=== PATIENT | male | born 1980 | race American Indian/Alaskan Native ===

== ENCOUNTER 2021-02-26 02:53 | Emergency (ER) | payer SELFPAY ==
[2021-02-26 08:43] VITALS: BP 146/76
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
--- NOTE | 2021-02-26 09:53 | XRay Report ---
PELVIS HISTORY: COMPARISON: None. TECHNIQUE: AP radiograph(s) of the pelvis obtained. FINDINGS: Bones: No fracture or dislocation. Joint spaces: Maintained. Soft Tissues: No significant abnormality. Additional findings: Intramedullary philip present right femur IMPRESSION: 1. No acute abnormality. Signer Name: Jimmy Bateman MD Signed: 02/26/2021 9:48 AM Workstation Name: [email or web address]
== END 2021-02-26 10:30 | disposition home or self-care (01) ==
LOC: ED 02:53
DX: G89.29 Other chronic pain (principal); M25.551 Pain in right hip; R03.0 Elevated blood-pressure reading, without diagnosis of hypertension; Z79.899 Other long term (current) drug therapy
CPT/HCPCS: 99283

== ENCOUNTER 2021-12-08 22:58 | Emergency (ER) | payer OTHER ==
[2021-12-09 00:24] VITALS: BP 136/74
[2021-12-09] MEDS ORDERED: KETOROLAC 30 MG/1 ML INJ IM ONE (01:09)
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
== END 2021-12-09 03:23 | disposition home or self-care (01) ==
LOC: ED 22:58
DX: M54.50 Low back pain, unspecified (principal)
CPT/HCPCS: 96372; 99282; J1885

== ENCOUNTER 2022-04-25 13:54 | Emergency (ER) | payer OTHER ==
[2022-04-25 14:21] VITALS: BP 119/76
--- NOTE | 2022-04-25 14:35 | Emergency Department Report ---
ED Lower Extremity HPI - General Chief Complaint: Extremity Problem,Nontraumatic Stated Complaint: RIGHT KNEE PAIN AND HIP PAIN Time Seen by Provider: 04/25/22 14:34 Source: patient Mode of arrival: Ambulatory Limitations: No Limitations - History of Present Illness Initial Comments: 41 yo comes to er with acute on chronic sciatica pain of his right lower extremity. He has no new trauma. He has been seen here in the past. He states he does not have a primary care physician. He is on no medicines. MD Complaint: hip injury, knee injury -: Gradual Severity scale (0 -10): 4 Improves With: nothing Worsens With: movement - Related Data Previous Rx's Medication Instructions Recorded Last Taken Type Cyclobenzaprine [Flexeril] 10 mg PO TID PRN #15 tab 04/25/22 Unknown Rx Naproxen 500 mg PO BID PRN #30 tab 04/25/22 Unknown Rx Allergies Allergy/AdvReac Type Severity Reaction Status Date / Time No Known Allergies Allergy Unverified 02/26/21 04:38 ED Review of Systems ROS: Stated complaint: RIGHT KNEE PAIN AND HIP PAIN Other details as noted in HPI Comment: All other systems reviewed and negative ED Past Medical Hx - Past Medical History Previous Medical History?: Yes Additional medical history: Chronic hip and knee pain - Surgical History Past Surgical History?: Yes Additional Surgical History: RT femur - Family History Family history: no significant - Social History Smoking Status: Never Smoker Substance Use Type: None - Medications Home Medications: Home Medications Medication Instructions Recorded Confirmed Last Taken Type Cyclobenzaprine [Flexeril] 10 mg PO TID PRN #15 tab 04/25/22 Unknown Rx Naproxen 500 mg PO BID PRN #30 tab 04/25/22 Unknown Rx ED Physical Exam - General Limitations: No Limitations General appearance: alert, in no apparent distress - Head Head exam: Present: atraumatic, normocephalic - Eye Eye exam: Present: normal appearance - ENT ENT exam: Present: mucous membranes moist - Neck Neck exam: Present: normal inspection - Respiratory Respiratory exam: Present: normal lung sounds bilaterally. Absent: respiratory distress - Cardiovascular Cardiovascular Exam: Present: regular rate, normal rhythm. Absent: systolic murmur, diastolic murmur, rubs, gallop - GI/Abdominal GI/Abdominal exam: Present: soft, normal bowel sounds - Rectal Rectal exam: Present: deferred - Extremities Exam Extremities exam: Present: normal inspection - Back Exam Back exam: Present: normal inspection - Neurological Exam Neurological exam: Present: alert, oriented X3 - Psychiatric Psychiatric exam: Present: normal affect, normal mood - Skin Skin exam: Present: warm, dry, intact, normal color. Absent: rash ED Course Vital Signs 04/25/22 14:19 Temperature 98.9 F Pulse Rate 74 Respiratory 18 Rate Blood Pressure 119/76 O2 Sat by Pulse 100 Oximetry ED Lower Extremity MDM - Medical Decision Making Vital signs are normal. pos straight leg raise no new trauma. Patient has no fever or chills. He has no abdominal pain. He has no back pain. No CVA tenderness. He has no nausea vomiting or diarrhea. Pain does not wake patient up from sleep.He has no foot drop or signs and symptoms of cauda equina. Patient ambulatory neurologically intact. Vital Signs 04/25/22 14:19 Temperature 98.9 F Pulse Rate 74 Respiratory 18 Rate Blood Pressure 119/76 O2 Sat by Pulse 100 Oximetry dc home with dc plan of care including diet, meds, activity and follow up He verbalizes understanding of plan of care. - Differential Diagnosis a/c pain ; uti; sti; kidney stone Critical care attestation.: If time is entered above; I have spent that time in minutes in the direct care of this critically ill patient, excluding procedure time. ED Disposition Clinical Impression: Sciatica Qualifiers: Laterality: right Qualified Code(s): M54.31 - Sciatica, right side Disposition: 01 HOME / SELF CARE / HOMELESS Is pt being admited?: No Does the pt Need Aspirin: No Condition: Stable Instructions: Sciatica Additional Instructions: warm baths will help meds as ordered today follow up with pcp referral below he is here at the hospital Prescriptions: Cyclobenzaprine [Flexeril] 10 mg PO TID PRN #15 tab PRN Reason: Muscle Spasm Naproxen 500 mg PO BID PRN #30 tab PRN Reason: Pain Referrals: CAROLYN CHRISTY MD [Staff Physician] - 3-5 Days Forms: Work/School Release Form(ED) Time of Disposition: 14:38
== END 2022-04-25 15:38 | disposition home or self-care (01) ==
LOC: ED 13:54
DX: M54.31 Sciatica, right side (principal); G89.29 Other chronic pain; M25.551 Pain in right hip; M25.561 Pain in right knee; Z98.890 Other specified postprocedural states
CPT/HCPCS: 99282

== ENCOUNTER 2022-05-23 10:08 | Emergency (ER) | payer OTHER ==
--- NOTE | 2022-05-23 11:50 | Emergency Department Report ---
ED Recheck HPI - General Chief Complaint: Extremity Injury, Lower Stated Complaint: PAIN IN R SIDE FROM LOWER BACK TO LEG Time Seen by Provider: 05/23/22 11:47 Source: patient Mode of arrival: Ambulatory Limitations: No Limitations - History of Present Illness Initial Comments: 41 yo comes to ER w a/c back leg pain. he states the referrals we have given him dont take his insurance no new trauma or fall no fever or chills. no urinary symptoms no incontinence -: Gradual, year(s) Symptoms Since Prior Visit: no new symptoms Associated Symptoms: none - Related Data Previous Rx's Medication Instructions Recorded Last Taken Type Ibuprofen [Motrin] 800 mg PO Q8HR PRN #30 tablet 05/23/22 Unknown Rx methylPREDNISolone [Medrol 4MG 4 mg PO FS #1 tab.ds.pk 05/23/22 Unknown Rx DOSEPAK (21 tabs)] Allergies Allergy/AdvReac Type Severity Reaction Status Date / Time No Known Allergies Allergy Verified 05/23/22 10:30 ED Review of Systems ROS: Stated complaint: PAIN IN R SIDE FROM LOWER BACK TO LEG Other details as noted in HPI Comment: All other systems reviewed and negative ED Past Medical Hx - Past Medical History Previous Medical History?: Yes Additional medical history: Chronic hip and knee pain - Surgical History Past Surgical History?: Yes Additional Surgical History: RT femur - Family History Family history: no significant - Social History Smoking Status: Never Smoker Substance Use Type: None - Medications Home Medications: Home Medications Medication Instructions Recorded Confirmed Last Taken Type Ibuprofen [Motrin] 800 mg PO Q8HR PRN #30 tablet 05/23/22 Unknown Rx methylPREDNISolone [Medrol 4MG 4 mg PO FS #1 tab.ds.pk 05/23/22 Unknown Rx DOSEPAK (21 tabs)] ED Physical Exam - General Limitations: No Limitations General appearance: alert, in no apparent distress - Head Head exam: Present: atraumatic, normocephalic - Eye Eye exam: Present: normal appearance - ENT ENT exam: Present: mucous membranes moist - Neck Neck exam: Present: normal inspection - Respiratory Respiratory exam: Present: normal lung sounds bilaterally. Absent: respiratory distress - Cardiovascular Cardiovascular Exam: Present: regular rate, normal rhythm. Absent: systolic murmur, diastolic murmur, rubs, gallop - GI/Abdominal GI/Abdominal exam: Present: soft, normal bowel sounds - Rectal Rectal exam: Present: deferred - Extremities Exam Extremities exam: Present: normal inspection - Back Exam Back exam: Present: normal inspection - Neurological Exam Neurological exam: Present: alert, oriented X3 - Psychiatric Psychiatric exam: Present: normal affect, normal mood - Skin Skin exam: Present: warm, dry, intact, normal color. Absent: rash ED Course Vital Signs 05/23/22 05/23/22 10:28 12:40 Temperature 98.6 F 98.5 F Pulse Rate 71 88 Respiratory 20 16 Rate Blood Pressure 116/72 109/85 [Right] O2 Sat by Pulse 99 100 Oximetry ED Recheck MDM - Core Measures Measure Exclusions: not indicated - Medical Decision Making pt educated on follow up. I've given him a list of options and asked him to call his insurance co. pt ambulatory and neuro intact. Vital Signs 05/23/22 05/23/22 10:28 12:40 Temperature 98.6 F 98.5 F Pulse Rate 71 88 Respiratory 20 16 Rate Blood Pressure 116/72 109/85 [Right] O2 Sat by Pulse 99 100 Oximetry dc home with dc plan of care including diet, meds, activity and follow up. He verbalizes understanding of plan of care. Critical care attestation.: If time is entered above; I have spent that time in minutes in the direct care of this critically ill patient, excluding procedure time. ED Disposition Clinical Impression: Arthritis Chronic back pain Qualifiers: Back pain location: low back pain Back pain laterality: right Sciatica presence: with sciatica Sciatica laterality: sciatica of right side Qualified Code(s): M54.41 - Lumbago with sciatica, right side; G89.29 - Other chronic pain Disposition: 01 HOME / SELF CARE / HOMELESS Is pt being admited?: No Does the pt Need Aspirin: No Condition: Stable Instructions: Arthritis Additional Instructions: MEDS ORDERED TODAY FOLLOW UP WITH MD REFERRALS BELOW AND ATTACHED Prescriptions: methylPREDNISolone [Medrol 4MG DOSEPAK (21 tabs)] 4 mg PO FS #1 tab.ds.pk Ibuprofen [Motrin] 800 mg PO Q8HR PRN #30 tablet PRN Reason: Pain, Moderate (4-6) Referrals: CAROLYN CHRISTY MD [Staff Physician] - 3-5 Days [facility] [Outside] - 3-5 Days [facility] [Outside] - 3-5 Days Forms: Work/School Release Form(ED) Time of Disposition: 11:48
[2022-05-23 12:56] VITALS: BP 109/85
== END 2022-05-23 12:51 | disposition home or self-care (01) ==
LOC: ED 10:08
DX: M19.90 Unspecified osteoarthritis, unspecified site (principal); G89.29 Other chronic pain; Z98.890 Other specified postprocedural states; Z79.899 Other long term (current) drug therapy
CPT/HCPCS: 99282